=== PATIENT | female | born 1950 | race Caucasian/White ===

== ENCOUNTER 2017-07-16 14:19 | Emergency (ER) | payer MEDICARE, OTHER ==
[~2017-07-16] VITALS: Ht 165.1 cm; Wt 75.0 kg
[2017-07-16] MEDS ORDERED: HYDROcodone/APAP 5/325 TABLET ONE (15:40)
[2017-07-16] MEDS ORDERED: HYDROcodone/APAP 5/325 TABLET PO ONE (16:00)
[2017-07-16] MEDS ORDERED: PLEASE ENTER ALLERGIES MC SCH (16:00)
[2017-07-16 17:22] VITALS: BP 141/81
== END 2017-07-16 18:21 | disposition home or self-care (01) ==
LOC: ED 16:39
DX: S16.1XXA Strain of muscle, fascia and tendon at neck level, initial encounter (principal); S00.83XA Contusion of other part of head, initial encounter; G89.11 Acute pain due to trauma; M54.5 Low back pain; F17.210 Nicotine dependence, cigarettes, uncomplicated; W01.0XXA Fall on same level from slipping, tripping and stumbling without subsequent striking against object, initial encounter; Y93.89 Activity, other specified; Y92.89 Other specified places as the place of occurrence of the external cause; Y99.9 Unspecified external cause status
CPT/HCPCS: 70450; 72110; 72125; 99284